=== PATIENT | female | born 1985 | race Caucasian/White ===

== ENCOUNTER 2018-02-11 20:14 | Emergency (ER) | payer MEDICAID, SELFPAY ==
[2018-02-11 20:16] VITALS: BP 179/87; PULSE 78; RESP 18; TEMP 36.6; O2SAT 98; BMI 25.0
--- NOTE | 2018-02-11 21:13 | ED.DCSUM_ITS ---
- ER Visit Summary Date of Service: 02/11/18 Chief Complaint: Belly button soreness and discharge History of Present Illness: The patient is a 32 F no senior past medical history. Patient states for the last 4 days or so she has had soreness in her bellybutton and discomfort and today had some foul-smelling discharge. No prior history. No fever. No abdominal wall redness. She denies any trauma to that area. Physical Examination: Well-appearing young female. Vital signs are stable afebrile. H EENT exam is unremarkable. Lungs clear to auscultation. Heart regular rhythm no murmur. Soft, nontender, nondistended normal bowel sounds no peritoneal signs. Both the right upper right lower quadrant unremarkable. No signs of obstruction. Abdomen soft. Her bellybutton currently there is no discharge. No obvious abscess. There is minimal redness. This is consistent with umbilical cellulitis. Extremities moves all 4. Neurologically she is awake and alert. Test Results: None Emergency Department Course and Treatment: Patient be treated with Keflex. She was instructed to clean her bellybutton. Return if she develops abdominal wall cellulitis, fever or feels worse. Treatment Plan: Keflex 4 times daily for 1 week. Disposition: Discharge Impression: Umbilical cellulitis This note was generated with [employer] dictation software. It may contain incorrect words, spelling, and punctuation that were not noted in review of the chart prior to signing ED Disposition - Plan for ED Patient: Chief Complaint: Abd Pain Referrals: Care Physician,No Primary [Primary Care Provider] -
--- NOTE | 2018-02-11 21:13 | ED.DEP ---
ED Disposition - Plan for ED Patient: Disposition: Home or Assisted Living Chief Complaint: Abd Pain Prescriptions: Cephalexin [Keflex] 500 mg PO Q6 #30 cap Referrals: Care Physician,No Primary [Primary Care Provider] - 3-5 Days if not improving Additional Instructions: Mo infection. Clean the area well with soap and water or peroxide and water. Dry thoroughly. Keflex as antibiotic 1 pill 4 times a day till gone. Tylenol Motrin for pain. Return if you see a large abscess or develop redness on your abdominal wall or fever.
[2018-02-11] MEDS: Cephalexin 250 MG Capsule 500 MG PO (21:46)
== END 2018-02-11 21:48 | disposition home or self-care (01) ==
PROVIDERS: Emergency Provider Emergency Medicine
DX: L03.316 Cellulitis of umbilicus (principal); Z72.0 Tobacco use
CPT/HCPCS: 99282

== ENCOUNTER → 2018-11-18 | Outpatient (CLI) | payer MEDICAID, SELFPAY ==
--- NOTE | 2018-11-18 10:55 | RAD_ITS ---
STUDY: X-RAY - RIGHT HAND REASON FOR EXAM: Female, 32 years old. Pain and swelling TECHNIQUE: 3 view(s) of the hand. COMPARISON: None. FINDINGS: Normal radiocarpal articulation. Normal distal radioulnar joint. Normal visualized carpal bones. Normal carpal articulations Normal carpometacarpal articulation of the thumb. Normal second through fifth carpometacarpal joints. Normal metacarpi. Normal metacarpophalangeal joint of the thumb. Normal interphalangeal joint of the thumb. Normal proximal and distal phalanges of the thumb. Normal metacarpophalangeal joints of the second through fifth fingers. Normal proximal and distal interphalangeal joints of the second through fifth fingers. Normal phalanges of the second through fifth fingers. The soft tissue structures are unremarkable. RAD/Hand Min 3 Views IMPRESSION: Normal x-ray examination of the hand. Electronically Signed: Matias Almodovar MD at 14:07 EDT , Service support ,
== END | disposition home or self-care (01) ==
DX: M79.644 Pain in right finger(s) (principal)
CPT/HCPCS: 73130

== ENCOUNTER → 2018-11-23 | Outpatient (CLI) | payer MEDICAID, SELFPAY ==
[2018-11-21 10:28] VITALS: BMI 24.3
--- NOTE | 2018-11-23 12:19 | US_ITS ---
STUDY: RENAL ULTRASOUND - COMPLETE REASON FOR EXAM: Female, 33 years old. Hematuria and urgency TECHNIQUE: Ultrasound evaluation of the kidneys was performed with real-time and static agee-scale imaging. COMPARISON: None. FINDINGS: RIGHT KIDNEY: The right kidney measures 10.7 x 5.0 x 4.8 cm. Normal cortical thickness 1.4 cm, normal cortical echotexture. LEFT KIDNEY: Left kidney measures 9.7 x 4.7 x 4.6 cm, normal cortical thickness and echotexture, 12 mm simple appearing cyst mid polar, parapelvic. BLADDER: 542 mL prevoid, 46 mL postvoid, small abnormal postvoid residual. The bladder appears normal in caliber, contour and wall thickness. Bilateral ureteral jets are visualized. Incidental note is made of a simple appearing dominant follicle right ovary measuring 1.8 cm. This is expected to be physiologic in this age group. US/Kidney and Bladder IMPRESSION: Small benign cyst of left kidney. Otherwise normal appearance of the kidneys and urinary bladder. Electronically Signed: Vernon La MD at 15:28 EDT Tel , Service support ,
== END | disposition home or self-care (01) ==
LOC: US 12:18
PROVIDERS: Referring Provider Nurse Practitioner Family; Visit Provider Nurse Practitioner Family
DX: R31.9 Hematuria, unspecified (principal)
CPT/HCPCS: 76770

== ENCOUNTER 2019-01-20 10:06 | Emergency (ER) | payer MEDICAID, SELFPAY ==
[2019-01-04 13:00] VITALS: BMI 24.3
[2019-01-20 10:07] VITALS: BP 155/94; PULSE 94; RESP 18; TEMP 36.6; O2SAT 98; BMI 24.3
--- NOTE | 2019-01-20 10:17 | ED.VISSUMM ---
- ER Visit Summary Date of Service: 01/20/19 Chief Complaint: Dysuria History of Present Illness: The patient is a 33 F presents to the emergency department urinary frequency, urgency, and dysuria. States her symptoms began today. She does have a history of Llao and states that it does not feel nearly as severe. She denies any fevers or chills. She denies any nausea or vomiting. She is not currently sexually active. She denies any history of prior kidney stone. Physical Examination: Vital signs reviewed General: Well-nourished, well-developed Head: Normocephalic, atraumatic Eyes: Pupils equal and reactive, extraocular muscles intact Neck, supple, no lymphadenopathy Heart: Regular rate and rhythm Respiratory: No distress, clear bilaterally Abdomen: Soft, nontender, nondistended, no peritoneal signs Back: Nontender Extremities: Nontender, no edema, no cords Skin: Normal color no rash Neuro: Alert and oriented, no focal or lateralizing deficits Test Results: [] Emergency Department Course and Treatment: The patient symptoms do seem consistent with acute cystitis. Urine is obtained and there was evidence of infection. Patient was treated with Macrobid. She is comfortable with this plan. Will be discharged home. Treatment Plan: I will Disposition: Discharged Impression: 1 1. Acute cystitis This note was generated with [employer] dictation software. It may contain incorrect words, spelling, and punctuation that were not noted in review of the chart prior to signing ED Disposition - Plan for ED Patient: Instructions: Bladder Infection, Female (Adult) Prescriptions: Nitrofurantoin Macrocrystals [Macrobid] 100 mg PO Q12 #10 cap Prescription Printed Referrals: Pat Candelario NP-C [Primary Care Provider] -
[2019-01-20 10:39] LABS: Internal QC Validated? YES +Cl - CLEAR BKGD; Pregnancy, Urine Negative Negative
[2019-01-20 10:44] LABS: Color, Urine Yellow (Yellow); Glucose, Dipstick Normal (Normal); Ketone-Dipstick 5 mg/dl (Negative); Leukocyte Esterase-Dipstick 25 /ul (Negative); Nitrite-Dipstick Negative (Negative); Occult Blood-Urine 50 /ul (Negative); Protein-Dipstick 15 mg/dl (Negative); Specific Gravity, Urine 1.025 (1.002-1.030); Urine Bilirubin Dipstick Negative (Negative); Urine Clarity Sl. Cloudy (Clear); Urine Urobilinogen 1 mg/dl (Normal)
[2019-01-20 10:48] LABS: Bacteria 1+ /hpf (None Seen); Mucous, Urine 1+ /hpf (<or=2+); Red Blood Cells-Urine 0-5 SEEN /hpf (0-5); Squamous Epithelial Cells - UA 0-5 SEEN /hpf (5-10); White Blood Cells 0-5 SEEN /hpf (0-5)
[2019-01-20] MEDS: Nitrofurantoin Macrocrystals 100 MG Capsule PO (11:11)
--- NOTE | 2019-01-20 11:13 | ED.RN ---
DISCHARGE INSTRUCTIONS GIVEN TO AND REVIEWED WITH PATIENT, PATIENT DENIES QUESTIONS OR CONCERNS AND VOICES UNDERSTANDING OF DISCHARGE INSTRUCTIONS. PT AMBULATES OUT OF ROOM WITHOUT DIFFICULTY.
== END 2019-01-20 11:14 | disposition home or self-care (01) ==
LOC: ED 10:34
PROVIDERS: Emergency Provider Emergency Medicine; Family Provider Nurse Practitioner Family; PCP Nurse Practitioner Family
DX: N30.00 Acute cystitis without hematuria (principal); Z87.891 Personal history of nicotine dependence
CPT/HCPCS: 81001; 81025; 99283

== ENCOUNTER → 2020-10-14 16:41 | Outpatient (CLI) | payer MEDICAID, SELFPAY ==
[2020-10-14 17:18] LABS: Absolute Lymphocyte Count 2.72 X10^3/uL (0.83-4.51); Absolute Neutrophil Count 13.1 X10^3/uL (2.0-7.7); Basophil# 0.08 X10^3/uL; Basophil% 0.5 % (0-1); Eosinophil# 0.04 X10^3/uL; Eosinophils% 0.2 % (0-5); Hematocrit 40.8 % (37-47); Hemoglobin 13.6 g/dL (12.0-15.0); Lymphocyte # 2.72 X10^3/ul (4.0); Lymphocyte % 15.9 % (19-41); Mean Corp Hgb Conc 33.3 g/dL (32-36); Mean Corpuscular Volume 92.9 fL (81-99); Mean Platelet Vol. 10.6 fl (6.2-12.0); Monocyte# 1.17 X10^3/uL; Monocyte% 6.8 % (0-10); NRBC Flagged by Analyzer 0 % (0-5); Neutrophil # 13.09 X10^3/uL (2.7-7.7); Neutrophil % 76.3 % (47-70); Platelet Count 295 K/mm3 (150-450); RBC Distribution Width CV 12.9 % (11.6-14.6); RBC Distribution Width SD 43.9 fl (35.1-43.9); Red Blood Count 4.39 M/mm3 (4.2-5.4); White Blood Count 17.2 K/mm3 (4.4-11.0)
[2020-10-14 17:52] LABS: Vitamin D,25 Hydroxy 22.6 ng/mL
[2020-10-14 18:00] LABS: ALB/GLOB Ratio 1.8 RATIO (0.9-2.4); AST(SGOT) 16 U/L (15-37); Alanine Aminotransfer ALT/SGPT 34 U/L (13-56); Albumin, Serum 5.2 g/dL (3.2-5.0); Alkaline Phosphatase 61 U/L (45-117); Anion Gap 6 (5-15); BUN 8 mg/dL (7-18); Calcium,Total 9.5 mg/dL (8.5-10.1); Chloride 106 mmol/L (98-107); Creatinine, Serum 0.89 mg/dL (0.55-1.02); EST Glomerular Filtration Rate 77 mL/min (>60); Est Glom Filt Rate - Afr Amer 93 mL/min (>60); Globulin 2.9 g/dL (2.2-4.2); Glucose 73 mg/dL (74-106); Potassium 3.4 mmol/L (3.5-5.1); Protein, Total 8.1 g/dL (6.4-8.2); Sodium Level 138 mmol/L (136-145); T4 Total, Thyroxin 11.4 ug/dL (4.8-13.9); Thyroid Stim Hormone (TSH) 3.35 uIU/mL (0.358-3.74)
[2020-10-14 18:03] LABS: Hemoglobin A1c 5.1 % (3.8-5.6)
[2020-10-16 12:26] LABS: Thyroid Peroxidase AB 23 IU/mL (0-34)
== END ==
DX: R03.0 Elevated blood-pressure reading, without diagnosis of hypertension (principal); R35.0 Frequency of micturition
CPT/HCPCS: 36415; 80053; 82306; 83036; 84436; 84443; 85025; 86376

== ENCOUNTER → 2020-10-30 14:32 | Outpatient (CLI) | payer MEDICAID, SELFPAY ==
[2020-10-30 15:18] LABS: Erythrocyte Sedimentation Rate 12 mm/hr (0-30)
[2020-11-01 20:08] LABS: Endomysial Antibody IgA Negative (Negative); Immunoglobulin A 149 mg/dL (87-352)
[2020-11-01 20:41] LABS: H. Pylori Antibody (IgG) 0.11 (0.00-0.79); t-Transglutaminase IgA <2 U/mL (0-3)
== END ==
DX: R11.0 Nausea (principal)
CPT/HCPCS: 36415; 82784; 83516; 85652; 86255; 86677

== ENCOUNTER → 2020-11-04 08:02 | Outpatient (CLI) | payer MEDICAID, SELFPAY ==
--- NOTE | 2020-11-04 08:04 | US_ITS ---
STUDY: ABDOMINAL ULTRASOUND REASON FOR EXAM: Female, 34 years old. NAUSEA . Epigastric pain. TECHNIQUE: Transabdominal ultrasound was performed with real-time and static davis scale imaging. TECHNICAL QUALITY: Adequate. COMPARISON: Comparison is made with prior examination dated 11/23/2018. FINDINGS: Liver: The liver measures 15.2 cm. There is normal echogenicity of the liver. The bile ducts are within normal limits. There is hepatic color flow. The direction of portal flow is hepatopetal. There is no demonstrated mass lesion. Portal vein measurement: Gallbladder: Normal distended gallbladder. The gallbladder wall measures 2.9 mm. There is a negative sonographic House''s sign. There is no pericholecystic fluid. There are no gallstones. Common Bile Duct (C.B.D.): The common bile duct measures 3.8 mm. Pancreas: Normal size of the head, body and tail of the pancreas. There is normal echogenicity of the pancreas. There is no demonstrated pancreatic mass or cyst. Spleen: Normal size of the spleen. The spleen measures 8.4 cm x 2.6 cm x 2.6 cm. Right Kidney: Normal size of the right kidney. The right kidney measures 10.5 cm x 4.6 cm x 4 cm. Normal renal cortex. The right cortex measures 1.3 cm. There is a 1.1 cm x 1 cm x 0.8 cm left renal cyst. There is no right hydronephrosis. Left Kidney: Normal size of the left kidney. The left kidney measures 9.7 cm x 4.7 cm x 5.6 cm. Normal renal cortex. The left cortex measures 2.3 cm. 1.1 cm x 1 cm x 0.8 There is no left hydronephrosis. Aorta: Unremarkable I.V.C.: The IVC is patent. There is no ascites. US/Abdomen Complete IMPRESSION: Stable small left renal cyst. Electronically Signed: Amarjit Agarwal MD at 12:18 EDT , Service support ,
== END ==
DX: R11.0 Nausea (principal)
CPT/HCPCS: 76700

== ENCOUNTER → 2021-07-14 11:03 | Outpatient (CLI) | payer MEDICAID, SELFPAY ==
[2021-07-14 11:56] LABS: Absolute Lymphocyte Count 1.88 X10^3/uL (0.83-4.51); Absolute Neutrophil Count 4.2 X10^3/uL (2.0-7.7); Basophil# 0.05 X10^3/uL; Basophil% 0.7 % (0-1); Eosinophil# 0.13 X10^3/uL; Eosinophils% 1.9 % (0-5); Hematocrit 40.2 % (37-47); Hemoglobin 12.9 g/dL (12.0-15.0); Lymphocyte # 1.88 X10^3/ul (0.83-4.51); Lymphocyte % 27.8 % (19-41); Mean Corp Hgb Conc 32.1 g/dL (32-36); Mean Corpuscular Hgb 30.5 pg (27.0-32.0); Monocyte# 0.49 X10^3/uL; Monocyte% 7.2 % (0-10); NRBC Flagged by Analyzer 0 % (0-5); Neutrophil % 62.1 % (47-70); Platelet Count 296 K/mm3 (150-450); RBC Distribution Width CV 13.2 % (11.6-14.6); RBC Distribution Width SD 46.2 fl (35.1-43.9); Red Blood Count 4.23 M/mm3 (4.2-5.4); White Blood Count 6.8 K/mm3 (4.4-11.0)
[2021-07-14 12:22] LABS: Vitamin D,25 Hydroxy 61.2 ng/mL
[2021-07-14 12:30] LABS: ALB/GLOB Ratio 1.2 RATIO (0.9-2.4); AST(SGOT) 15 U/L (15-37); Alanine Aminotransfer ALT/SGPT 27 U/L (13-56); Alkaline Phosphatase 65 U/L (45-117); Anion Gap 8 (5-15); BUN 8 mg/dL (7-18); BUN/Creat Ratio 9.2 RATIO (10-20); Chloride 108 mmol/L (98-107); Creatinine, Serum 0.87 mg/dL (0.55-1.02); EST Glomerular Filtration Rate 79 mL/min (>60); Est Glom Filt Rate - Afr Amer 96 mL/min (>60); Globulin 3.3 g/dL (2.2-4.2); Glucose 90 mg/dL (74-106); Potassium 3.6 mmol/L (3.5-5.1); Protein, Total 7.3 g/dL (6.4-8.2); Sodium Level 142 mmol/L (136-145); Thyroid Stim Hormone (TSH) 1.23 uIU/mL (0.358-3.74)
== END ==
PROVIDERS: Visit Provider Nurse Practitioner Adult Health
DX: R59.0 Localized enlarged lymph nodes (principal); E55.9 Vitamin D deficiency, unspecified
CPT/HCPCS: 36415; 80053; 82306; 84443; 85025

== ENCOUNTER → 2021-11-20 | Outpatient (CLI) | payer MEDICAID, SELFPAY ==
--- NOTE | 2021-11-20 13:55 | RAD_ITS ---
STUDY: X-RAY - PARANASAL SINUSES REASON FOR EXAM: Female, 36 years old. CHRONIC SINUSITIS,UNSPECIFIED TECHNIQUE: 3 view(s) of the paranasal sinuses were obtained. COMPARISON: None. FINDINGS: Normal visualized frontal, maxillary, ethmoidal and sphenoid sinuses. Normal visualized facial bones. The soft tissue structures are unremarkable. RAD/Sinuses min 3 Views IMPRESSION: Normal x-rays of the paranasal sinuses. Electronically Signed: Amarjit Agarwal MD at 15:37 EDT ,
== END | disposition home or self-care (01) ==
LOC: RAD 13:51
PROVIDERS: Referring Provider Nurse Practitioner Adult Health; Visit Provider Nurse Practitioner Adult Health
DX: J32.9 Chronic sinusitis, unspecified (principal)
CPT/HCPCS: 70220

== ENCOUNTER 2022-02-27 13:32 | Emergency (ER) | payer MEDICAID, SELFPAY ==
[2022-02-27 13:34] VITALS: BP 160/80; PULSE 98; RESP 18; TEMP 36.2; O2SAT 100; BMI 26.5
[2022-02-27 14:20] LABS: Anion Gap 7 (5-15); BUN 14 mg/dL (7-18); BUN/Creat Ratio 13.5 RATIO (10-20); Calcium,Total 9.6 mg/dL (8.5-10.1); Chloride 107 mmol/L (98-107); Creatinine, Serum 1.04 mg/dL (0.55-1.02); EST Glomerular Filtration Rate 64 mL/min (>60); Est Glom Filt Rate - Afr Amer 77 mL/min (>60); Estimated Creatinine Clearance 81.65 ml/min; Glucose 108 mg/dL (74-106); Potassium 3.6 mmol/L (3.5-5.1); Sodium Level 139 mmol/L (136-145)
[2022-02-27 14:22] LABS: Absolute Neutrophil Count 5.3 X10^3/uL (2.0-7.7); Basophil# 0.05 X10^3/uL; Basophil% 0.6 % (0-1); Eosinophil# 0.17 X10^3/uL; Hemoglobin 14.2 g/dL (12.0-15.0); Lymphocyte % 25.9 % (19-41); Mean Corpuscular Hgb 31.3 pg (27.0-32.0); Mean Corpuscular Volume 94.7 fL (81-99); Monocyte% 8.3 % (0-10); NRBC Flagged by Analyzer 0 % (0-5); Neutrophil # 5.31 X10^3/uL (2.7-7.7); Neutrophil % 62.6 % (47-70); Platelet Count 269 K/mm3 (150-450); RBC Distribution Width CV 12.3 % (11.6-14.6); RBC Distribution Width SD 42.9 fl (35.1-43.9); Red Blood Count 4.54 M/mm3 (4.2-5.4); White Blood Count 8.5 K/mm3 (4.4-11.0)
[2022-02-27 14:24] LABS: Mucous, Urine 0 SEEN /hpf (<or=2+)
[2022-02-27 14:29] VITALS: BP 141/80; PULSE 77; RESP 18; O2SAT 100
[2022-02-27 14:33] LABS: Color, Urine Yellow (Yellow); Glucose, Dipstick Normal (Normal); Ketone-Dipstick Negative (Negative); Leukocyte Esterase-Dipstick 100 /ul (Negative); Nitrite-Dipstick Negative (Negative); Occult Blood-Urine 150 /ul (Negative); Protein-Dipstick 30 mg/dl (Negative); Specific Gravity, Urine 1.015 (1.002-1.030); Urine Bilirubin Dipstick Negative (Negative); Urine Clarity Clear (Clear); Urine Urobilinogen Normal (Normal)
[2022-02-27 14:52] LABS: Squamous Epithelial Cells - UA 0-5 SEEN /hpf (5-10); White Blood Cells 10-25 SEEN /hpf (0-5)
[2022-02-27 14:53] LABS: Bacteria 1+ /hpf (None Seen)
[2022-02-27 14:54] LABS: Red Blood Cells-Urine 0-5 SEEN /hpf (0-5)
--- NOTE | 2022-02-27 15:06 | EX.ED.DYSGE1 ---
HPI History of Present Illness Chief Complaint: Lower Extremity Injury Informant: patient Onset/Context/Timing Onset: Days (3) Context: Gradual Onset Timing: Continuous Quality: muscle cramping Location: mostly BLE throughout Current Severity: Moderate Maximum Severity: Severe Worsened by: movement Relieved by: remaining still Associated Symptoms Associated Symptoms: malaise/fatigue Narrative Narrative: This patient presents with diffuse cramping and muscle spasms throughout both of her legs. She is bending her toes down creates reproduced symptoms throughout her entire extremity bilaterally. She occasionally has some symptoms in the fingers of her hands that are similar but for the most part her arms are okay. She started having this after being exposed to a hotter than normal work environment. 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 That was 2-3 days ago. She went for a half of day yesterday, and she called off today because the symptoms are persistent. She has tried to drink water. She denies cough shortness of breath fever or chills. [facility] Medical History (Updated 02/27/22 @ 18:[address] Julian Carvalho MD) Anxiety depression Fissure in ano Home Medications norethindrone 0.5 mg-ethinyl estradiol 35 mcg tablet 1 tab PO DAILY 08/14/17 [History Last Taken Unknown] cholecalciferol (vitamin D3) 1,250 mcg (50,000 unit) capsule 50,000 unit PO QWEEK 11/28/18 [History Last Taken Unknown] escitalopram oxalate 10 mg tablet 20 mg PO DAILY 11/28/18 [History Last Taken Unknown] meloxicam 15 mg tablet 15 mg PO DAILY 01/20/19 [History Last Taken Unknown] nitrofurantoin monohydrate/macrocrystals 100 mg capsule 100 mg PO Q12 #10 caps 01/20/19 [Rx Last Taken Unknown] Allergy/AdvReac Type Severity Reaction Status Date / Time No Known Allergies Allergy Verified 02/27/22 13:37 Family History Mother Diabetes Heart disease Hypertension Kidney disease CAD (coronary artery disease) Father Multiple sclerosis Surgical History (Updated 02/22/22 @ 09:29 by Andreina Bender) s/p excisional breast biopsy S/P LEEP S/P ovarian cystectomy Social History Smoking Status: Current every day smoker tobacco type: cigarettes alcohol intake: never ROS ROS ED Constitutional Constitutional ED: Reports fatigue and malaise; Denies chills or fever(s) Eyes Eyes: Denies change in vision or diplopia ENT ENT ED: Denies rhinorrhea or sore throat Cardiovascular Cardiovascular: Denies chest pain or palpitations Respiratory/Chest Respiratory/Chest: Denies cough or dyspnea Gastrointestinal Gastrointestinal: Denies abdominal pain, diarrhea, nausea or vomiting Genitourinary Genitourinary ED: Denies dysuria or hematuria Musculoskeletal Musculoskeletal: Reports as per HPI, extremity pain, muscle cramps, muscle spasms and myalgias; Denies back pain or neck pain Integumentary Denies abscess or rash Neurologic Neurologic: Denies headache(s), paresthesias or weakness Psychiatric Psychiatric: Denies anxiety or suicidal thoughts EXAM Physical Exam Const Vital Signs: 02/27/22 13:34 02/27/22 14:29 02/27/22 16:37 Temperature 97.1 F L Temperature Source Temporal Pulse Rate 98 77 70 Respiratory Rate 18 18 16 Blood Pressure 160/80 H 141/80 H Blood Pressure Mean 106 100 Pulse Ox 100 100 98 Oxygen Delivery Method Room Air Room Air Room Air 02/27/22 17:23 Temperature Temperature Source Pulse Rate 70 Respiratory Rate 18 Blood Pressure 118/63 Blood Pressure Mean 81 Pulse Ox 97 Oxygen Delivery Method Room Air Positive well nourished and well developed General Appearance ED: well developed and NAD HEENT Reports moist mucous membranes normocephalic and atraumatic Eyes PERRL and EOMs intact bilaterally Neck full ROM and supple Resp normal respiratory effort and clear to auscultation bilaterally Cardio regular rate, regular rhythm and no murmurs Rate: Negative for tachycardic GI non-tender and non-distended Auscultation: normoactive bowel sounds Palpation: soft Back/Spine no CVA tenderness General Back: other FROM Extremity normal to inspection Extremity Narrative: All compartments soft and nondistended and nontender General Extremety ED: Negative for edema, pulses abnormal or tenderness General Extremity: Negative for edema or pulses abnormal Neuro oriented x3, CN's II-XII intact bilaterally and no sensory deficits noted Sensorium / Orientation: awake and alert Motor Exam: strength 5/5 throughout Psych mental status grossly normal Skin no rashes or lesions noted and no wounds MDM MDM MDM Narrative Medical decision making narrative: Patient was given Zofran and a liter of IV fluids, she did feel better. Her urine shows a couple of indicators for infection, she states that she usually gets urinary symptoms when she has infections, she has had this before, she has had no urinary symptoms recently. Therefore I am sending her urine for culture and not necessarily treating empirically, I think this is more likely to be heat cramps, she does not have any electrolytes that are in need of fixing, her CPK is normal, and I did a COVID given her vague symptoms which was negative. At this time I will recommend continuing to hydrate herself, she was written a work note for today, and to try to cool her self when at work is much as she is possibly able. Lab Data Attestation: I reviewed the patient's lab results. Labs: Laboratory Results - last 24 hr 02/27/22 02/27/22 02/27/22 13:58 13:58 13:58 WBC 8.5 RBC 4.54 Hgb 14.2 Hct 43.0 MCV 94.7 MCH 31.3 MCHC 33.0 RDW Std Deviation 42.9 RDW Coeff of Chai 12.3 Plt Count 269 MPV 12.0 Immature Gran % (Auto) 0.600 Neut % (Auto) 62.6 Lymph % (Auto) 25.9 [place] % (Auto) 8.3 Eos % (Auto) 2.0 Baso % (Auto) 0.6 Absolute Neuts (auto) 5.3 Absolute Lymphs (auto) 2.20 Nucleated RBC % 0 Sodium 139 Potassium 3.6 Chloride 107 Carbon Dioxide 25.0 Anion Gap 7 BUN 14 Creatinine 1.04 H Estim Creat Clear Calc 81.65 Est GFR (MDRD) Af Amer 77 Est GFR (MDRD) Non-Af 64 BUN/Creatinine Ratio 13.5 Glucose 108 H Calcium 9.6 Total Creatine Kinase Serum , Qual NEGATIVE Urine Color Urine Clarity Urine pH Ur Specific [place] Urine Protein Urine Glucose (UA) Urine Ketones Urine Occult Blood Urine Nitrite Urine Bilirubin Urine Urobilinogen Ur Leukocyte Esterase Urine RBC Urine WBC Ur Squamous Epith Cells Urine Bacteria Urine Mucus 02/27/22 02/27/22 02/27/22 14:14 15:30 15:30 WBC 8.7 RBC 4.28 Hgb 13.3 Hct 40.5 MCV 94.6 MCH 31.1 MCHC 32.8 RDW Std Deviation 42.8 RDW Coeff of Chai 12.2 Plt Count 254 MPV 11.4 Immature Gran % (Auto) 0.200 Neut % (Auto) 64.8 Lymph % (Auto) 22.4 [place] % (Auto) 10.5 H Eos % (Auto) 1.3 Baso % (Auto) 0.8 Absolute Neuts (auto) 5.6 Absolute Lymphs (auto) 1.94 Nucleated RBC % 0 Sodium 140 Potassium 3.8 Chloride 108 H Carbon Dioxide 26.0 Anion Gap 6 BUN 13 Creatinine 0.98 Estim Creat Clear Calc 86.64 Est GFR (MDRD) Af Amer 83 Est GFR (MDRD) Non-Af 69 BUN/Creatinine Ratio 13.3 Glucose 93 Calcium 9.5 Total Creatine Kinase 100 Serum , Qual Urine Color Yellow Urine Clarity Clear Urine pH 5.0 Ur Specific [place] 1.015 Urine Protein 30 H Urine Glucose (UA) Normal Urine Ketones Negative Urine Occult Blood 150 H Urine Nitrite Negative Urine Bilirubin Negative Urine Urobilinogen Normal Ur Leukocyte Esterase 100 H Urine RBC 0-5 SEEN Urine WBC 10-25 SEEN Ur Squamous Epith Cells 0-5 SEEN Urine Bacteria 1+ Urine Mucus 0 SEEN Discharge Plan Triage Chief Complaint: Lower Extremity Injury ED Provider: Julian Carvalho Dx/Rx/DC Orders Clinical Impression: Heat cramps, Microscopic hematuria, Proteinuria Instructions: ED Heat Cramps Prescriptions: No Action cholecalciferol (vitamin D3) 50,000 unit capsule 50,000 unit PO QWEEK escitalopram oxalate 10 mg tablet 20 mg PO DAILY norethindrone-ethin estradiol 1 EACH tablet 1 tab PO DAILY meloxicam 15 MG tablet 15 mg PO DAILY Label Comments: TAKE 1 TABLET BY MOUTH ONCE DAILY nitrofurantoin monohyd/m-cryst 100 MG capsule 100 mg PO Q12 Qty: 10 0RF Stand Alone Forms: ED Work / School Excuse Primary Care Provider: [facility] Referrals: [facility] [Primary Care Provider] - 3-5 Days if not improving (urine culture sent and pending) Disposition Disposition: Home, Self Care
[2022-02-27] MEDS: Ondansetron 4 MG/2 ML Vial IV (15:27)
[2022-02-27] MEDS: 0.9% Normal Saline 1,000 ML 999 ML IV (15:27)
[2022-02-27 15:32] LABS: Absolute Lymphocyte Count 1.94 X10^3/uL (0.83-4.51); Absolute Neutrophil Count 5.6 X10^3/uL (2.0-7.7); Basophil# 0.07 X10^3/uL; Basophil% 0.8 % (0-1); Eosinophil# 0.11 X10^3/uL; Eosinophils% 1.3 % (0-5); Hematocrit 40.5 % (37-47); Hemoglobin 13.3 g/dL (12.0-15.0); Lymphocyte # 1.94 X10^3/ul (0.83-4.51); Lymphocyte % 22.4 % (19-41); Mean Corp Hgb Conc 32.8 g/dL (32-36); Mean Corpuscular Hgb 31.1 pg (27.0-32.0); Mean Corpuscular Volume 94.6 fL (81-99); Mean Platelet Vol. 11.4 fl (6.2-12.0); Monocyte# 0.91 X10^3/uL; Monocyte% 10.5 % (0-10); NRBC Flagged by Analyzer 0 % (0-5); Neutrophil # 5.62 X10^3/uL (2.7-7.7); Neutrophil % 64.8 % (47-70); Platelet Count 254 K/mm3 (150-450); RBC Distribution Width CV 12.2 % (11.6-14.6); RBC Distribution Width SD 42.8 fl (35.1-43.9); Red Blood Count 4.28 M/mm3 (4.2-5.4); White Blood Count 8.7 K/mm3 (4.4-11.0)
[2022-02-27 15:47] LABS: Anion Gap 6 (5-15); BUN 13 mg/dL (7-18); BUN/Creat Ratio 13.3 RATIO (10-20); CPK Total, Creatine Kinase 100 U/L (26-192); Calcium,Total 9.5 mg/dL (8.5-10.1); Chloride 108 mmol/L (98-107); Creatinine, Serum 0.98 mg/dL (0.55-1.02); EST Glomerular Filtration Rate 69 mL/min (>60); Est Glom Filt Rate - Afr Amer 83 mL/min (>60); Estimated Creatinine Clearance 86.64 ml/min; Glucose 93 mg/dL (74-106); Potassium 3.8 mmol/L (3.5-5.1); Sodium Level 140 mmol/L (136-145)
[2022-02-27 16:37] VITALS: PULSE 70; RESP 16; O2SAT 98
[2022-02-27 17:04] LABS: Internal QC Validated? YES +Cl - CLEAR BKGD; Pregnancy, Serum, hCG Quali. NEGATIVE Negative
[2022-02-27 17:23] VITALS: BP 118/63; PULSE 70; RESP 18; O2SAT 97
== END 2022-02-27 18:18 | disposition home or self-care (01) ==
PROVIDERS: Emergency Provider Emergency Medicine; Visit Provider Emergency Medicine
DX: T67.2XXA Heat cramp, initial encounter (principal); F41.9 Anxiety disorder, unspecified; F32.A Depression, unspecified; R31.29 Other microscopic hematuria; R80.9 Proteinuria, unspecified; Z79.899 Other long term (current) drug therapy; Z20.822 Contact with and (suspected) exposure to COVID-19; X30.XXXA Exposure to excessive natural heat, initial encounter; Y99.0 Civilian activity done for income or pay
CPT/HCPCS: 80048; 81001; 82550; 84703; 85025; 87077; 87086; 87088; 87186; 87811; 96361; 96374; 99283; A4216; J2405

== ENCOUNTER 2022-05-18 16:32 | Emergency (ER) | payer MEDICAID, SELFPAY ==
[2022-05-18 16:33] VITALS: BP 161/90; PULSE 124; RESP 16; TEMP 37.1; O2SAT 100; BMI 25.8
--- NOTE | 2022-05-18 17:57 | EX.ED.UPPERE ---
HPI History of Present Illness Chief Complaint: Laceration Detail of Chief Complaint: Crush injury left long finger Informant: patient Occured/Mechanism Mechanism/Context: Yes blunt trauma Comment: Crushed by refrigerator Onset/Context/Timing Onset: Hours (Approximate 4 hours ago) Context: Sudden Onset Timing: Continuous Quality of Pain: Dull, Aching and Throbbing Location: Distal left long finger Current Severity: Mild Maximum Severity: Severe Worsened by: Type of movement Relieved by: Nothing Associated Symptoms Associated Symptoms: Positive for Loss of Funtion; Negative for Parasthesia or Weakness Narrative Narrative: Patient is a 36-year-old [id number] woman who presents with crush injury to the left long finger. This occurred several hours ago while moving her fridge rater. She denies paresthesia, anesthesia medics. She does not recall her last shot. She has a dressing on it. Tetanus Immunization: Unknown Prior similar symptoms: No Recent Illness/Hospitalization: No PFSH PFSH Medical History Anxiety depression Fissure in ano Home Medications cholecalciferol (vitamin D3) 1,250 mcg (50,000 unit) capsule 50,000 unit PO QWEEK 11/28/18 [History Last Taken Unknown] escitalopram oxalate 10 mg tablet 20 mg PO DAILY 11/28/18 [History Last Taken Unknown] meloxicam 15 mg tablet 15 mg PO DAILY 01/20/19 [History Last Taken Unknown] hydrocodone-acetaminophen 5-325mg 5mg-325mg 1 tab PO Q6H PRN PRN Pain 3 days #10 TABLETS 05/18/22 [Rx Last Taken Unknown] Allergy/AdvReac Type Severity Reaction Status Date / Time No Known Allergies Allergy Verified 02/27/22 13:37 Family History Mother Diabetes Heart disease Hypertension Kidney disease CAD (coronary artery disease) Father Multiple sclerosis Surgical History s/p excisional breast biopsy S/P LEEP S/P ovarian cystectomy Social History (Updated 05/18/22 @ 17:[address] Richar Kirkland MD) household members: significant other Smoking Status: Current every day smoker tobacco type: cigarettes alcohol intake: never ROS ROS ED Musculoskeletal Musculoskeletal: Reports other Details: Pain left long finger ; Denies back pain, myalgias or neck pain Integumentary Reports other Details: Subungual hematoma and partially avulsed nail ; Denies abscess, Abrasions or rash Neurologic Neurologic: Denies paresthesias or weakness Hematologic/Lymphatic Hematologic/Lymphatic: Denies easy bleeding, easy bruising or lymphadenopathy EXAM Physical Exam Const Vital Signs: 05/18/22 16:33 Temperature 98.7 F Temperature Source Temporal Pulse Rate 124 H Respiratory Rate 16 Blood Pressure 161/90 H Blood Pressure Mean 113 Pulse Ox 100 Oxygen Delivery Method Room Air Positive well nourished, well developed and obese General Appearance ED: well developed and NAD; Negative for cyanotic or diaphoretic Nutritional Appearance: obese HEENT HEENT Narrative: Ears normal. Nares patent. Teeth normal. normocephalic and atraumatic Eyes PERRL and EOMs intact bilaterally Eyes Narrative: Sclera anicteric. Neck full ROM and supple Resp normal respiratory effort Cardio regular rate and regular rhythm Extremity Negative for normal to inspection Extremity Narrative: There is a subungual hematoma which has been relieved because the proximal radial side of the nail has been partially avulsed. There is ecchymosis over the distal and middle phalanx. The extensor commonest tendon is functionally intact. Flexor digitorum superficialis and flexor digitorum profundus are intact. Patient has normal cap refill. Neuro oriented x3 and CN's II-XII intact bilaterally Neuro Narrative: Median, radial and ulnar function intact. Psych mental status grossly normal Skin General Skin Exam: Negative for petechiae Lesions: no lesions MDM MDM MDM Narrative Medical decision making narrative: X-ray was obtained to evaluate for fracture. Will anesthetize digit to reapproximate the nail. Radiography Diagnostic Testing: Three-view x-ray of the finger was obtained. There is a nondisplaced tuft fracture noted. There is also soft tissue swelling. This was independent reviewed and interpreted by me. Procedures Other Procedures Procedure(s): Digital block of the left long finger. The radial side of the nail was lifted up and the proximal portion was tucked under the cuticle. There is a small laceration noted to the nailbed 3 mm. This is not significant. She will be placed in a aluminum splint since there is a tuft fracture on the x-ray. Discharge Plan Triage Chief Complaint: Laceration ED Provider: Richar Kirkland Dx/Rx/DC Orders Clinical Impression: Closed fracture of tuft of distal phalanx of finger, Avulsion of nail of left ring finger, Nailbed injury Prescriptions: New hydrocodone-acetaminophen [hydrocodone-acetaminophen] 5-325 mg tablet 1 tab PO Q6H PRN PRN (Reason: Pain) 3 Days Qty: 10 0RF No Action cholecalciferol (vitamin D3) 50,000 unit capsule 50,000 unit PO QWEEK escitalopram oxalate 10 mg tablet 20 mg PO DAILY meloxicam 15 MG tablet 15 mg PO DAILY Label Comments: TAKE 1 TABLET BY MOUTH ONCE DAILY Primary Care Provider: Jasmin Park Referrals: [facility] [Non-Staff] - 3-5 Days Disposition Disposition: Home, Self Care
[2022-05-18] MEDS: Diphth,Pertuss(Acell),Tet Vac 0.5 ML Vial IM (17:59)
--- NOTE | 2022-05-18 18:00 | RAD_ITS ---
EXAM: XR LEFT FINGERS, 2 OR MORE VIEWS CLINICAL INDICATION: Injury/Pain -- Long finger TECHNIQUE: Frontal, lateral and oblique views of the fingers of the left hand. This report was created using [employer] report generation technology. COMPARISON: None. FINDINGS: BONES/JOINTS: Unremarkable. No acute fracture. No subluxation. Normal alignment. Preservation of the joint space. No sclerotic or destructive changes observed. SOFT TISSUES: Soft tissue swelling around the third digit. Fracture of the tuft of the digit. No significant displacement. No radiopaque foreign body. RAD/Finger(s) Min 2 Views IMPRESSION: Soft tissue swelling around the third digit. Fracture of the tuft of the digit. No significant displacement. Electronically Signed: Zain Bowie MD at 18:28 EDT ,
[2022-05-18] MEDS: Lidocaine 1% (20 ml mdv) 20 ML Vial INFILT (18:12)
[2022-05-18] MEDS: Ondansetron ODT 4 MG Tablet PO (18:12)
[2022-05-18 20:35] VITALS: RESP 16
== END 2022-05-18 20:38 | disposition home or self-care (01) ==
PROVIDERS: Emergency Provider Emergency Medicine; PCP Nurse Practitioner Adult Health; Visit Provider Emergency Medicine
DX: S62.633A Displaced fracture of distal phalanx of left middle finger, initial encounter for closed fracture (principal); E66.9 Obesity, unspecified; W23.0XXA Caught, crushed, jammed, or pinched between moving objects, initial encounter; Z23 Encounter for immunization
CPT/HCPCS: 11760; 73140; 90471; 90715; 99283

== ENCOUNTER → 2022-06-16 | Outpatient (CLI) | payer MEDICAID, SELFPAY ==
[2022-06-16 13:03] LABS: Vitamin D,25 Hydroxy 55.6 ng/mL
[2022-06-16 13:10] LABS: Anion Gap 8 (5-15); BUN 13 mg/dL (7-18); BUN/Creat Ratio 13.2 RATIO (10-20); Calcium,Total 9.2 mg/dL (8.5-10.1); Chloride 107 mmol/L (98-107); Creatinine, Serum 0.98 mg/dL (0.55-1.02); EST Glomerular Filtration Rate 68 mL/min (>60); Est Glom Filt Rate - Afr Amer 83 mL/min (>60); Glucose 109 mg/dL (74-106); Magnesium 2.1 mg/dL (1.6-2.6); Potassium 3.7 mmol/L (3.5-5.1); Sodium Level 139 mmol/L (136-145)
== END | disposition home or self-care (01) ==
LOC: LAB 11:48
PROVIDERS: Referring Provider Nurse Practitioner Family
DX: R25.2 Cramp and spasm (principal)
CPT/HCPCS: 36415; 80048; 82306; 83735; 84443

== ENCOUNTER 2022-07-10 11:30 | Outpatient (RCR) | payer MEDICAID, SELFPAY ==
--- NOTE | 2022-06-03 09:25 | HP.OTEVAL ---
Patient's Visit Information GAMAL HUANG is a 36 year old F, referred to Occupational Therapy by Dr. Iggy Vergara MD, with a diagnosis of displaced fx of distal phalanx left MF. Date of Evaluation: 06/03/22 Occupational Therapist: Ana Luisa Collins, OTR/Marlene, CHT - Subjective This 36 year old female was seen for OT eval with dx or left MF distal phalanx fx. pt states she was moving a refrigerator and she smashed her finger. She did go to ER and they put a supportive splint on her finger- she states Dr. Vergara told her to go ahead and not wear it and she has noticed a big difference in her ROM. pt states tingling is irritating. 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 - ROM MP: left MF 0/80 right 0/95 PIP: left MF -30/90 left +20/105 DIP: left MF -10/30 left +15/40 ROM Comments: pts ROM limited at this time with flex and ext. - Strength Crown Assembly Machine Set Up Mechanic: right 60# left NT Lateral Pinch: right 12# left NT Tripod Pinch: right 12# left NT Strength Comments: will test strength at later date - Sensation Thumb: right 2.83 left 2.83 Index: right 2.83 left 2.83 Middle: right 2.83 left 2.83 Ring: right 2.83 left 2.83 Little: right 2.83 left 2.83 Sensation Comments: pt reports pins and needle sensation - Quick DASH-Disab of Arm,Shoulder& Hand Quick DASH Score: 48.3325 - Goals Goal:ROM equal to unaffected hand: Yes Goal:Crown Assembly Machine Set Up Mechanic/Pinch strength at least 75% of unaffected hand: Yes Goal:No pain with affected hand use: Yes Goal:Full use of affected hand in daily activities including: Yes - Rehabilitation General Assessment: pt demo with limited ROM of left MF and healing fx of distal phalanx limiting pts use of left hand with daily tasks. pt would benefit from skilled OT services 1x week for next 3-4 weeks to assist pt in returning to her PLOF. Today therapist ed. pt on reverse blocking to increase PIP ext. as well as tendon glides to improve full composite fist. pt was also given hand on her ex. she demo understanding and agree to POC. Rehabilitation Potential: Excellent - Anticipated Interventions A/AAROM/PROM, Strengthening, Edema Control, Desensitization, Sensory Retraining - Visit Plan Frequency: 1x/Week Duration: 4 Weeks TEXT: Thank you for the opportunity to evaluate your patient. For Medicare and Medicare HMO plans, please review the plan of care and approve it. It will need to be FAXED BACK to us at [phone] for Medicare purposes. Please let me know if there are questions or concerns regarding this plan of care. Physician Signature: Date:
--- NOTE | 2022-08-13 14:08 | HP.OT.NRP ---
GAMAL HUANG was seen in my office for initial evaluation on 06/03/22. The following Plan of Care was established for this patient: Initial Frequency: 1x/Week Initial Duration: 4 Weeks Anticipated Interventions: A/AAROM/PROM, Strengthening, Edema Control, Desensitization, Sensory Retraining This patient was last seen in our office 07/10/22. Pertinent comments regarding their Occupational therapy will appear below: pt was seen for 4 OT sessions. At this time no further apts. have been scheduled and due to time lapse of greater than 30 days of services pt is d/c. At this point I will be discontinuing this patient from occupational therapy. I would be happy to see this patient again in the future if found appropriate by the physician. Thank you! Ana Luisa Collins, OTR/L, CHT
== END 2022-07-10 19:00 | disposition home or self-care (01) ==
LOC: OT 11:30
PROVIDERS: Referring Provider Orthopaedic Surgery Sports Medicine; Visit Provider Orthopaedic Surgery Sports Medicine
DX: S62.633D Displaced fracture of distal phalanx of left middle finger, subsequent encounter for fracture with routine healing (principal)
CPT/HCPCS: 97110; 97140; 97165; 97530

== ENCOUNTER → 2022-10-09 | Outpatient (CLI) | payer MEDICAID, SELFPAY ==
--- NOTE | 2022-10-09 07:50 | BI_ITS ---
MAMMOGRAPHY - BILATERAL SCREENING 3-D TOMOSYNTHESIS REASON FOR EXAM: Female, 36 years old. Routine screening PERTINENT HISTORY: No significant family history. TECHNIQUE: 2-D mammograms and 3-D Tomosynthesis of the breast (s) were performed. CAD was performed. COMPARISON: None. Baseline examination. FINDINGS: The breast composition is heterogeneously dense that can obscure small breast masses. Scattered benign calcifications are seen. No dense spiculated masses or suspicious microcalcifications are identified. No architectural distortion is identified. There is no skin thickening or retraction. BI/SCRN MAMM (CAD)W/SERGIO BILAT IMPRESSION: No mammographic signs of malignancy. Routine yearly mammograms recommended. ASSESSMENT CATEGORY: BIRADS Category 2: Benign. A letter regarding these results will be sent to the patient by the facility within 30 days. FOLLOW UP RECOMMENDATION: Yearly follow up mammogram recommended. (A) Approximately 10% of breast cancers are not detected by mammography. A normal mammogram should not delay biopsy of a clinically suspicious abnormality. Electronically Signed: Matias Almodovar MD at 8:44 EDT ,
== END | disposition home or self-care (01) ==
LOC: OPBI 07:49
PROVIDERS: Referring Provider Nurse Practitioner Women's Health; Visit Provider Nurse Practitioner Women's Health
DX: Z12.31 Encounter for screening mammogram for malignant neoplasm of breast (principal)
CPT/HCPCS: 77063; 77067

== ENCOUNTER → 2022-10-20 | Outpatient (CLI) | payer MEDICAID, SELFPAY ==
--- NOTE | 2022-10-20 07:08 | US_ITS ---
STUDY: ULTRASOUND OF THE FEMALE PELVIS - COMPLETE REASON FOR EXAM: Female, 36 years old. RLQ PAIN LMP: October 07, 2022 TECHNIQUE: Transvaginal TECHNICAL QUALITY: Adequate. COMPARISON: None. FINDINGS: The uterus is anteverted and is in a midline position. The uterus measures 8.2 cm x 5.1 cm x 4 cm. There is a Nabothian cyst of the cervix. The endometrium measures 8.0 mm in thickness, and is heterogeneous (striated). There is no demonstrated endometrial mass. There is no demonstrated myometrial mass. I.U.D. - The patient does not have an I.U.D. The right ovary is visualized. The right ovary measures 4.1 cm x 3.5 cm x 2.9 cm. Follicles are seen within the ovary. There is no visualized right adnexal mass or complex lesion. There is normal arterial and normal venous vascularity. The left ovary is visualized. The left ovary measures 3.9 cm x 2 cm x 2 cm. Follicles are seen within the ovary. There is no visualized left adnexal mass or complex lesion. There is normal arterial and normal venous vascularity. There is no fluid in the cul-de-sac. US/Transvaginal Non- IMPRESSION: Follicles are seen within both ovaries. Electronically Signed: Amarjit Agarwal MD at 15:23 EDT ,
== END | disposition home or self-care (01) ==
LOC: US 07:05
PROVIDERS: Referring Provider Nurse Practitioner Women's Health; Visit Provider Nurse Practitioner Women's Health
DX: R10.31 Right lower quadrant pain (principal)
CPT/HCPCS: 76830